=== PATIENT | male | born 1990 ===

== ENCOUNTER 2021-07-29 07:36 | Emergency (ER) | payer SELFPAY ==
[2021-07-29 07:45] VITALS: BP 149/96; PULSE 86; RESP 20; TEMP 36.7; O2SAT 95
--- NOTE | 2021-07-29 07:45 | DI.RAD_ITS ---
Exam(s) XR FOOT LT COMPLETE EXAM: XR FOOT LT COMPLETE CLINICAL HISTORY: Lt great toe injury. TECHNIQUE: 2D digital imaging was performed of the left foot. Three images were obtained. AP, obli que and lateral views were obtained. COMPARISON: No exams were available for comparison FINDINGS: BONES: No acute fracture is present. No bony destructive lesion is seen. JOINTS: No dislocation present. SOFT TISSUE: Normal. IMPRESSION: Unremarkable radiographs of the left foot. DATA REPOSITORY: RADIATION DOSE DELIVERED:
--- NOTE | 2021-07-29 08:35 | W.ED.GENAD ---
Discharge Plan Disposition Patient Disposition: HOME Condition: Stable Discharge Details Clinical Impression: Contusion of great toe of left foot Primary Care Provider: Zahida,Local ED Provider: Gregory Reina Home Meds and New Rx's Prescriptions: Continued albuterol 90 mcg/actuation Aerosol 90 mcg INHALATION TID ibuprofen [IBU] 600 mg Tablet 600 mg PO Q6H Discharge Instructions Instructions: Contusion in Adults (ED) Additional Instructions: X-ray as read by radiology is unremarkable. Rest, elevate, cool compresses every 2 hours for 20 minutes. Wear edwin taping and postop shoe as needed, advance activity as tolerated. [id number] Tylenol and/or Motrin as directed for discomfort. Please watch for new or worsening symptoms and return to the ER for any concerns. If symptoms are to persist into next week and I recommend following up with your primary care provider. Medical Decision Making 31-year-old gentleman who was wearing closed shoes yesterday when he accidentally stubbed his toe on a stair at work. Plan is to obtain x-ray and reassess X-ray read by radiology as negative. Plan is to edwin tape the first and second toe and placed into a postop shoe. We then discussed conservative measures and outpatient follow-up through PCP Standard discharge and return precautions were provided. Patient understands, is agreeable to this plan, and has no additional questions or concerns upon discharge. This documentation was generated using [employer] system, please disregard any oddities of phrase or misspellings. Imaging Data Radiologic Study: Attestation: I personally reviewed and interpreted this imaging study as follows: Imaging: X-Ray Radiologist's impression: Exam(s) XR FOOT LT COMPLETE EXAM: XR FOOT LT COMPLETE CLINICAL HISTORY: Lt great toe injury. TECHNIQUE: 2D digital imaging was performed of the left foot. Three images were obtained. AP, oblique and lateral views were obtained. COMPARISON: No exams were available for comparison FINDINGS: BONES: No acute fracture is present. No bony destructive lesion is seen. JOINTS: No dislocation present. SOFT TISSUE: Normal. IMPRESSION: Unremarkable radiographs of the left foot. HPI General Mode of arrival: ambulatory. Date/Time Provider Initiated Documentation: 07/29/21 08:03. Limitations to Documentation: no limitations. Information obtained by: patient. History of Present Illness 31 year old M presents to the emergency department with the chief complaint of R great toe injury, described as moderate, with intensity rated at 4. Quality is described as aching, and is localized to the right and lower extremity. Patient reports no radiation. Patient started experiencing this day(s) (1) and it has been constant. Immobilization improves symptom(s), Movement worsens symptoms . Patient notes no other symptoms.. Patient did receive the following treatments prior to arrival, none Related Data Home Medications Medication Instructions Recorded Confirmed albuterol 90 mcg/actuation aerosol 90 mcg inhalation TID 07/29/21 07/29/21 inhaler ibuprofen 600 mg tablet (IBU) 600 mg PO Q6H 07/29/21 07/29/21 Allergies Allergy/AdvReac Type Severity Reaction Status Date / Time No Known Allergies Allergy Unverified 07/29/21 07:48 General Stated Complaint: Orthopedic BRENDAN: 4 Review of Systems Constitutional Constitutional: Denies weakness Musculoskeletal Musculoskeletal: Denies deformity, Reports arthralgias, Denies numbness, Reports stiffness and Denies tingling Integumentary/Breasts Skin/Breast: Denies erythema and Denies rash Neurologic Neurologic: Denies numbness, Denies tingling and Denies weakness PFSH All Active Problems (Updated 07/29/21 @ 09:07 by ISABELLA Blanca) Contusion of great toe of left foot (Acute) Social History Smoking/Tobacco Use Status: Current every day Tobacco Type: e-cigarettes Smoking risk assessment performed?: Yes Alcohol Intake: former Drug use: Never Substance use type: does not use Do you feel safe at home: Yes Do you feel safe in your relationship?: Yes Exam Const General: cooperative, healthy appearing, comfortable and no acute distress Orientation: alert and awake [facility] Head: normal to inspection, normocephalic and atraumatic Eyes Conjunctivae: conjunctivae normal Neck Neck: normal visual inspection, trachea midline and supple Resp Effort & Inspection: normal respiratory effort and able to speak in complete sentences Cardio Rate: regular rate Rhythm: regular rhythm Skin General skin exam: no rashes or lesions noted Neuro General: patient alert, patient awake, moves all extremities and no focal motor deficits Cognition: normal cognition Speech: speech normal Gait: antalgic Sensory Exam: no sensory deficits noted Extrem General: full ROM and capillary refill normal Ankle/foot/toe images: 1. Mild swelling, tenderness, ecchymosis. Skin is intact. 5 out of 5 strength. No deformity. Neuro, vascular, tendon intact. Normal capillary refill and dorsalis pedal pulse. No subungual hematoma Psych Appearance: grossly normal Mental Status: mental status grossly normal Course Vital Signs Vital signs: Vital Signs Temperature 36.7 C 07/29/21 07:45 Pulse 86 07/29/21 07:45 Respiratory Rate 20 07/29/21 07:45 Blood Pressure 149/96 H 07/29/21 07:45 Pulse Oximetry 95 07/29/21 07:45 Temperature 36.7 C 07/29/21 07:45 Temperature Source Temporal Artery Scan 07/29/21 07:45 Pulse 86 07/29/21 07:45 Respiratory Rate 20 07/29/21 07:45 Respiratory Effort 07/29/21 07:47 Blood Pressure 149/96 H 07/29/21 07:45 Blood Pressure Position Sitting 07/29/21 07:45 Pulse Oximetry 95 07/29/21 07:45 Oxygen Delivery Method Room Air 07/29/21 07:45 Oxygen Flow Rate 0 07/29/21 07:45 Pain Level 3 07/29/21 07:50
[2021-07-29 08:42] VITALS: BP 143/85; PULSE 72; RESP 22; TEMP 36.5; O2SAT 95
== END 2021-07-29 09:30 | disposition home or self-care (01) ==
PROVIDERS: Emergency Provider Physician Assistant
DX: S90.112A Contusion of left great toe without damage to nail, initial encounter (principal); W22.09XA Striking against other stationary object, initial encounter
CPT/HCPCS: 99283; 73630

== ENCOUNTER 2022-05-13 15:48 | Emergency (ER) | payer SELFPAY ==
[2022-05-13 15:50] VITALS: BP 166/106; PULSE 74; RESP 18; TEMP 36.8; O2SAT 100
--- NOTE | 2022-05-13 17:24 | ED.GENADUL_ITS ---
Discharge Plan Disposition Patient Disposition: Home Discharge Details Clinical Impression: Laceration of finger of left hand Primary Care Provider: Zahida,Local ED Provider: Ciarra Kelly Home Meds and New Rx's Prescriptions: Continued albuterol 90 mcg/actuation Aerosol 90 mcg INHALATION TID ibuprofen [IBU] 600 mg Tablet 600 mg PO Q6H Discharge Instructions Instructions: Finger Laceration (ED) Additional Instructions: your wound was closed with steristrips keep wound clean and dry washing daily with warm soapy water keep dressing to protect monitor for and report signs of infection immediately can use ibuprofen and acetaminophen as directed for pain Referrals: Wilber Garner NP [NURSE PRACTITIONER] - Discharge Data Discharge Date/Time-TO BE ENTERED AT DEPARTURE: 05/13/22 19:21 Medical Decision Making <Ciarra Kelly NP - Last Filed: 05/14/22 17:37> Patient given 1000 mg of Tylenol for pain. Wound was dressed prior to arrival with pressure dressing. No active bleeding noted. Dressing was removed wound bed is examined and there is no foreign body or debris. He states there was no exposure to bodily fluids. He states he cleaned his wound prior to arrival. I did offer to numb the area and while a ttempting to anesthetize area with 1 % lidocaine patient was unable to tolerated and asked that I stop. he declined suture repair which was recommended for closure and opted for steri strips. I did irrigate the area with a bottle of normal saline under pressure using a splash guard. Wound bed was again examined no foreign body wound bed clear. I tried to approximated the best I could with Steri-Strips. Bleeding controlled with additional pressure. A dry dressing was applied with tube gauze to secure. Wound care instructions have been given. He states his tetanus is up-to-date. He should follow-up with occupational medicine for wound check and further wound recommendations. He is advised to keep his dressing clean and dry and monitor for signs of infection <Beatrice Lozano DO - Last Filed: 05/14/22 22:50> Patient given 1000 mg of Tylenol for pain. Wound was dressed prior to arrival with pressure dressing. No active bleeding noted. Dressing was removed wound bed is examined and there is no foreign body or debris. He states there was no exposure to bodily fluids. He states he cleaned his wound prior to arrival. I did offer to numb the area and while attempting to anesthetize area with 1 % lidocaine patient was unable to tolerated and asked that I stop. he declined suture repair which was recommended for closure and opted for steri strips. I did irrigate the area with a bottle of normal saline under pressure using a splash guard. Wound bed was again examined no foreign body wound bed clear. I tried to approximated the best I could with Steri-Strips. Bleeding controlled with additional pressure. A dry dressing was applied with tube gauze to secure. Wound care instructions have been given. He states his tetanus is up-to-date. He should follow-up with occupational medicine for wound check and further wound recommendations. He is advised to keep his dressing clean and dry and monitor for signs of infection. Dr. Lozano Patient not seen or examined by me but I was available for consult if needed. HPI <Ciarra Kelly NP - Last Filed: 05/14/22 17:37> General Mode of arrival: ambulatory . Date/Time Provider Initiated Documentation: 05/13/22 16:33 . Limitations to Documentation: no limitations . Information obtained by: patient . HPI Narrative: cut left middle finger while at work on a rotary tool, approx 1 cm long with t shape, bleeding controlled. states tetanus up to date. Related Data Home Medications Medication Instructions Recorded Confirmed albuterol 90 mcg/actuation aerosol 90 mcg inhalation TID 07/29/21 05/13/22 inhaler ibuprofen 600 mg tablet (IBU) 600 mg PO Q6H 07/29/21 05/13/22 Allergies Allergy/AdvReac Type Severity Reaction Status Date / Time No Known Allergies Allergy Unverified 05/13/22 15:55 General Stated Complaint: Laceration BRENDAN: 4 Review of Systems <Ciarra Kelly NP - Last Filed: 05/14/22 17:37> All systems reviewed & are unremarkable except as noted in HPI and below PFSH <Ciarra Kelly NP - Last Filed: 05/14/22 17:37> All Active Problems (Updated 05/14/22 @ 17:37 by Ciarra Kelly NP) Laceration of finger of left hand (Acute) Social History Smoking/Tobacco Use Status: Current every day Tobacco Type: e-cigarettes Smoking risk assessment performed?: Yes Alcohol Intake: former Drug use: Never Substance use type: does not use Do you feel safe at home: Yes Do you feel safe in your relationship?: Yes Exam <Ciarra Kelly NP - Last Filed: 05/14/22 17:37> Narrative Exam Narrative: agitated male of stated age, no acute distress. head atraumatic, skin is well perfused left middle finger with 1 cm laceration on pad of finger, full thickness. no foreign body or debris noted. , bleeding controlled. Const General: anxious Nutritional Appearance: obese Orientation: alert, awake and oriented x3 HENMT Head: normal to inspection, normocephalic and atraumatic Mouth: oral mucosae normal Chest Chest: normal inspection of the chest Resp Effort & Inspection: normal respiratory effort Cardio Rate: regular rate Rhythm: regular rhythm (Good radial pulse) Skin Lesions: lesion noted (Approximately 1 cm laceration to left middle finger bleeding is controlled) Psych Appearance: grossly normal Speech and Movement: agitated Mood: irritable mood Affect: blunted Attitude: guarded and avoids eye contact Course <Ciarra Kelly NP - Last Filed: 05/14/22 17:37> Vital Signs Vital signs: Vital Signs Temperature 36.8 C 05/13/22 15:50 Pulse 74 05/13/22 15:50 Respiratory Rate 18 05/13/22 15:50 Blood Pressure 166/106 H 05/13/22 15:50 Pulse Oximetry 100 05/13/22 15:50 Temperature 36.8 C 05/13/22 15:50 Temperature Source Tympanic 05/13/22 15:50 Pulse 74 05/13/22 15:50 Respiratory Rate 18 05/13/22 15:50 Blood Pressure 166/106 H 05/13/22 15:50 Blood Pressure Position Sitting 05/13/22 15:50 Pulse Oximetry 100 05/13/22 15:50 Oxygen Delivery Method Room Air 05/13/22 15:50 Oxygen Flow Rate 0 05/13/22 15:50 Pain Level 7 05/13/22 15:50 Comment ran wound under water 05/13/22 15:50
[2022-05-13] MEDS: Acetaminophen 500 MG TAB 1000 MG PO (18:15)
[2022-05-13 18:19] VITALS: BP 143/96; PULSE 63; RESP 17; TEMP 37.1; O2SAT 97
[2022-05-13] MEDS: Lidocaine 1% Pres-Free 5 ML VIAL (18:29)
== END 2022-05-13 19:21 | disposition home or self-care (01) ==
PROVIDERS: Emergency Provider Nurse Practitioner Acute Care
DX: S61.213A Laceration without foreign body of left middle finger without damage to nail, initial encounter (principal); E66.9 Obesity, unspecified; R45.1 Restlessness and agitation; Y99.0 Civilian activity done for income or pay; W29.8XXA Contact with other powered hand tools and household machinery, initial encounter
CPT/HCPCS: 99283

== ENCOUNTER 2022-06-28 13:39 | Outpatient (REF) | payer OTHER, SELFPAY ==
[2022-06-28 16:51] LABS: BUN 16 mg/dL (7-18); CREATININE 0.7 mg/dL (0.70-1.30); Calcium 9.1 mg/dL (8.5-10.1); Calculated LDL 115 mg/dL (<100); Chloride 105 mmol/L (98-107); Cholesterol 192 mg/dL (<200); Estimated GFR 124.77 (mL/min/1.73m2); Glucose 99 mg/dL (74-106); HDL Cholesterol 37 mg/dL (40-60); Potassium 4.6 mmol/L (3.5-5.1); Sodium 140 mmol/L (136-145); Triglyceride 201 mg/dL (<150)
[2022-06-29 11:46] LABS: Hemoglobin A1C 5.6 % (<5.7)
== END 2022-06-28 13:40 | disposition home or self-care (01) ==
LOC: NCHCN 13:39
PROVIDERS: Visit Provider Nurse Practitioner Family
DX: R73.03 Prediabetes (principal); Z86.79 Personal history of other diseases of the circulatory system; E78.5 Hyperlipidemia, unspecified
CPT/HCPCS: 80048; 80061; 83036

== ENCOUNTER 2024-02-17 19:54 | Outpatient (REF) | payer BC, SELFPAY ==
[2024-02-17 19:17] LABS: Abs Immature Grans 0.03 10^3/uL (0.0-0.06); Absolute Basophil Count 0.09 10^3/uL (0.0-0.2); Absolute Lymphocyte Count 2.14 10^3/uL (1.2-3.4); Absolute Monocyte Count 0.65 10^3/uL (0.1-0.8); Basophils % 0.8 %; Eosinophils % 1.2 %; HCT 41.1 % (40.0-50.0); HGB 13.8 g/dL (13.5-17.5); Immature Grans % 0.3 %; MCH 31.7 pg (27.0-33.0); MCHC 33.6 % (32.0-36.0); MCV 94 fL (80-95); MPV 9.6 fL (8.0-11.0); Monocytes % 5.8 %; Neutrophils % 72.9 %; Platelet Count 540 10^3/uL (130-400); RBC 4.36 10^6/uL (4.36-5.78); RDW 13.7 % (11.8-14.1); RDW-SD 47.6 fL; WBC 11.26 10^3/uL (4.4-10.8)
[2024-02-17 19:23] LABS: Absolute Eosinophil Count 0.14 10^3/uL (0.0-0.7); Absolute Neutrophil Count 8.21 10^3/uL (1.2-6.7)
[2024-02-17 19:48] LABS: Hemoglobin A1C 5.8 % (<5.7)
[2024-02-17 19:54] LABS: ALT 22 U/L (16-63); AST 17 U/L (15-37); Albumin 4.1 g/dL (3.4-5.0); Alkaline Phosphatase 96 U/L (46-116); Anion Gap 8.7 mmol/L (3-11); BUN 28 mg/dL (7-18); Bilirubin, Total 0.34 mg/dL (0.2-1.0); CO2 30.3 mmol/L (21.0-32.0); CREATININE 0.8 mg/dL (0.70-1.30); Calcium 9.5 mg/dL (8.5-10.1); Calculated LDL 80 mg/dL (<100); Chloride 104 mmol/L (98-107); Cholesterol 152 mg/dL (<200); Estimated GFR 118.36 (mL/min/1.73m2); Glucose 98 mg/dL (74-106); HDL Cholesterol 57 mg/dL (40-60); Potassium 4.4 mmol/L (3.5-5.1); Sodium 143 mmol/L (136-145); Total Protein 7.1 g/dL (6.4-8.2); Triglyceride 75 mg/dL (<150); Vitamin D 25 Total 13.9 ng/mL (30-100)
[2024-02-20 10:36] LABS: PSA, Diagnostic 0.7 ng/mL (<=2.5)
== END 2024-02-17 19:55 | disposition home or self-care (01) ==
LOC: NCHCN 19:54
PROVIDERS: PCP Nurse Practitioner Family; Visit Provider Nurse Practitioner Family
DX: E78.5 Hyperlipidemia, unspecified (principal); R73.03 Prediabetes; E27.8 Other specified disorders of adrenal gland; E55.9 Vitamin D deficiency, unspecified; R35.0 Frequency of micturition
CPT/HCPCS: 80053; 80061; 82306; 83036; 84153; 85025